=== PATIENT | male | born 1985 | race African-American/Black ===

== ENCOUNTER 2021-10-13 02:14 | Emergency (ER) | payer OTHER ==
[~2021-10-13] VITALS: Ht 177.8 cm; Wt 102.0 kg
[~2021-10-13 02:14] MED LIST: ABIL10; BUPR150T; DIVA-18; KEPP500 MT; LORA-249 PO
[2021-10-13] MEDS ORDERED: OLANZAPINE 10 MG/VIAL IM ONE (02:30)
[2021-10-13 04:12] LABS: BASOPHILS % 0.5 % (0.0-2.0); EOSINOPHILS % 1.3 % (0.0-5.0); HEMATOCRIT. 38.4 % (42.0-52.0); HEMOGLOBIN. 13.3 g/dL (14.0-18.0); LYMPHOCYTES % 17.4 % (20.0-50.0); MEAN CORPUSCULAR HEMOGLOBIN 29.3 pg (28.0-32.0); MEAN CORPUSCULAR VOLUME 84.5 fL (80.0-94.0); MEAN PLATELET VOLUME 8.4 fl (7.4-10.4); MONOCYTES % 7.6 % (2.0-8.0); NEUTROPHILS % 73.2 % (40.0-76.0); PLATELET 225 x1000/uL (130-400); RED BLOOD CELL COUNT 4.54 mill/uL (4.7-6.1); RED CELL DISTRIBUTION WIDTH 13.9 % (11.6-14.6)
[2021-10-13 04:19] LABS: CHLORIDE 107 mEq/L (98-107)
[2021-10-13 04:23] LABS: ETHANOL BLOOD < 10 mg/dL
[2021-10-13 11:54] LABS: *BARBITURATES SCREEN URINE NEGATIVE (NEGATIVE); *BENZODIAZEPINES SCREEN URINE NEGATIVE (NEGATIVE); *COCAINE SCREEN URINE NEGATIVE (NEGATIVE); METHADONE URINE SCREEN NEGATIVE (NEGATIVE); OPIATES URINE SCREEN NEGATIVE (NEGATIVE)
[2021-10-13 11:55] LABS: *AMPHETAMINES SCREEN URINE PRESUMTIVE POSITIVE (NEGATIVE); CANNABINOID URINE SCREEN PRESUMTIVE POSITIVE (NEGATIVE); PHENCYCLIDINE URINE SCREEN NEGATIVE (NEGATIVE)
[2021-10-13] MEDS: OLANZAPINE 5MG TABLET PO SCH ×2 (15:17→21:40)
[2021-10-13] MEDS ORDERED: HALOPERIDOL LACTATE 5MG/ML VIAL IM ONE (17:30)
[2021-10-13] MEDS ORDERED: LORAZEPAM 2MG/ML CPJ IM ONE (17:30)
[2021-10-14] MEDS: OLANZAPINE 5MG TABLET PO SCH (10:00)
[2021-10-14 13:09] VITALS: BP 115/62
== END 2021-10-14 13:29 ==
LOC: ER 02:14
DX: R45.851 Suicidal ideations (principal); J45.909 Unspecified asthma, uncomplicated; Z20.822 Contact with and (suspected) exposure to COVID-19; Z91.19 Patient's noncompliance with other medical treatment and regimen; Z88.0 Allergy status to penicillin; Z86.59 Personal history of other mental and behavioral disorders; Z98.890 Other specified postprocedural states
CPT/HCPCS: 36415; 80053; 80305; 80307; 80320; 80329; 85025; 96372; 99285; C9803; J1630; J2060; J3490; U0003; U0005; G0480